=== PATIENT | female | born 1990 | race Caucasian/White ===

== ENCOUNTER 2020-08-13 00:22 | Emergency (ER) | payer OTHER ==
[~2020-08-13] VITALS: Ht 165.1 cm; Wt 112.0 kg
[2020-08-13 00:31] VITALS: BP 109/55
--- NOTE | 2020-08-13 00:31 | NUR ---
TO BED AMBULATORY
--- NOTE | 2020-08-13 00:43 | NUR ---
30/F BIB SELF C/O NECK PAIN 12/09. PT DESCRIBES THE PAIN STIFFNESS AND CRAMP LIKE. PT VERBALIZED THAT PAIN IS RADIATING TO HER BACK AND HEAD. DENIES ANY STRENOUS ACTIVITY OR ANY FEELING OF NUMBNESS. DENIES PMH NKA
--- NOTE | 2020-08-13 00:45 | NUR ---
Dr. Martinez examining patient.
[2020-08-13] MEDS ORDERED: KETOROLAC 30 MG/ML VIAL IM ONE (00:55)
[2020-08-13] MEDS ORDERED: methocarbamoL 500 MG TAB PO SCH (00:55)
[2020-08-13] MEDS ORDERED: DEXAMETHASONE 4 MG/ML VIAL PO STA (01:02)
[2020-08-13] MEDS ORDERED: METH750T5 PO (01:10)
--- NOTE | 2020-08-13 01:46 | NUR ---
Patient discharged with v/s stable. Written and verbal after care instructions given and explained. Patient alert, oriented and verbalized understanding of instructions. Ambulatory with steady gait. All questions addressed prior to discharge. ID band removed. Patient advised to follow up with PMD. Rx of ROBAXIN given. Patient educated on indication of medication including possible reaction and side effects. Opportunity to ask questions provided and answered.
[2020-08-13 01:49] VITALS: BP 109/55
== END 2020-08-13 01:46 | disposition home or self-care (01) ==
LOC: MED 00:22
DX: M54.2 Cervicalgia (principal); M62.838 Other muscle spasm; R51.9 Headache, unspecified
CPT/HCPCS: 96372; 99283; J1100; J1885